=== PATIENT | male | born 1960 | race Two or more races ===

== ENCOUNTER → 2023-07-02 | Outpatient (CLI) | payer MEDICAID ==
[~2023-07-02] MED LIST: ALBUTEROL SULF 2.5 MG/0.5ML(0.5%) NEB SOLN ONE
== END | disposition home or self-care (01) ==
LOC: RT 11:44
PROVIDERS: ATTEND Internal Medicine Pulmonary Disease
DX: R06.02 Shortness of breath (principal); R06.09 Other forms of dyspnea
CPT/HCPCS: 94060; 94727; 94729

== ENCOUNTER 2023-09-02 06:08 | Inpatient (IN) | payer MEDICAID ==
[2023-08-31 10:54] LABS: Basophils # (auto) 0 10 ^3/uL (0-0.2); Basophils % (auto) 0.7 % (0.0-2.0); Eosinophils # (auto) 0.1 10 ^3/uL (0-0.8); Hematocrit 41.1 % (41.0-53.0); Hemoglobin 13.9 g/dL (13.5-17.5); Lymphocytes # (auto) 1.4 10 ^3/uL (0.4-5.4); Lymphocytes % (auto) 29.5 % (10.0-50.0); Mean Corpuscular Hemoglobin 29.2 pg (28.0-32.0); Mean Corpuscular Hgb Conc. 33.8 g/dL (32.0-36.0); Mean Corpuscular Volume 86.4 fL (80.0-100.0); Monocytes # (auto) 0.4 10 ^3/uL (0-1.3); Monocytes % (auto) 7.3 % (0.0-12.0); Neutrophils % (auto) 60.5 % (37.0-80.0); Nucleated Red Blood Cells % 0.1 %; Red Blood Cells 4.76 10^6/uL (4.5-5.90); Red Cell Distribution Width 13.5 % (11.8-14.3); White Blood Cell 4.9 10^3/uL (4.4-10.8)
[2023-08-31 11:34] LABS: Alanine Aminotransferase 23 U/L (7-40); Albumin 4.3 g/dL (3.2-4.8); Alkaline Phosphatase 198 U/L (46-116); Anion Gap 6 (5-15); Aspartate Aminotransferase 10 U/L (13-40); BUN/Creatinine Ratio 13.8 (10.0-20.0); Blood Urea Nitrogen 13 mg/dL (9-23); Calcium 9.1 mg/dL (8.5-10.1); Carbon Dioxide 28 mmol/L (20-30); Chloride 106 mmol/L (98-107); Glucose 103 mg/dL (74-106); Potassium 4.7 mmol/L (3.5-5.1); Sodium 140 mmol/L (136-145)
[2023-08-31 11:35] LABS: Bilirubin, Total 0.2 mg/dL (0.2-1.0); Total Protein 6.7 g/dL (5.7-8.2)
[2023-08-31 11:36] LABS: Urine Bacteria NONE SEEN /hpf (None Seen); Urine Blood Negative /uL (Negative); Urine Clarity Clear (Clear); Urine Color Yellow (Yellow); Urine Protein, UAD Negative (Negative); Urine Specific Gravity 1.022 (1.001-1.035); Urine Urobilinogen Normal (Negative); Urine WBC 1 /hpf (0 - 3)
[2023-08-31 11:54] LABS: INR 1.01 (0.9-1.15); Partial Thromboplastin Time 31.3 SEC (24.5-34.5); Prothrombin Time 10.6 sec (9.3-11.8)
[~2023-09-02] VITALS: Ht 167.6 cm; Wt 99.2 kg
[~2023-09-02 06:08] MED LIST changes: -ALBUTEROL SULF 2.5 MG/0.5ML(0.5%) NEB SOLN ONE; +HYDR-4798 PO; +LORA-1121 PO; +PANT40TA2 PO; +PHEN1CAP60 PO; +TAMS0.4C36 PO; +ceFAZolin 2 GM/D5W100ml 100 ML IV ONE
[2023-09-02] MEDS ORDERED: SUCCINYLCHOLINE CHLORIDE 20 MG/ML 10ML VIAL IV ONE (06:36)
[2023-09-02] MEDS ORDERED: PROPOFOL 10 MG/ML 20 ML IV ONE (06:39)
[2023-09-02] MEDS ORDERED: fentaNYL CITRATE 100 MCG/2 ML VL ONE (06:39)
[2023-09-02] MEDS ORDERED: ROCURONIUM 10MG/ML 10ML VIAL IV ONE (06:44)
[2023-09-02] MEDS ORDERED: MIDAZOLAM HCL 2MG/2ML 2ml VIAL (1mg/ml) ONE (06:48)
[2023-09-02] MEDS ORDERED: DexAMETHasone SOD PHOS 10MG/1ML VIAL INJ ONE (06:48)
[2023-09-02] MEDS ORDERED: GLYCOPYRROLATE 0.2 MG/ML 1ML VIAL ONE (06:48)
[2023-09-02] MEDS ORDERED: ONDANSETRON HCL 4 MG/2 ML VIAL ONE (06:48)
[2023-09-02] MEDS ORDERED: NEOSTIGMINE 1 MG/ML INJ (10mg/10ML VIAL) ONE (06:48)
[2023-09-02] MEDS ORDERED: LIDOCAINE W/ EPINEPHRINE 2% INJ 20ML VIAL ONE (06:48)
[2023-09-02] MEDS ORDERED: BUPIVACAINE 0.5% P/F INJ 10 ML VIAL ONE (06:48)
[2023-09-02] MEDS ORDERED: MEPERIDINE HCL (25 MG/ML) 1ML VIAL ONE (06:48)
[2023-09-02] MEDS ORDERED: METOCLOPRAMIDE HCL 5MG/ml INJ 2ml VIAL IV PRN (07:15)
[2023-09-02] MEDS ORDERED: HYDROmorphone HCL 2 MG/ML VL/or syr IV PRN (07:15)
[2023-09-02] MEDS ORDERED: MORPHINE SULFATE INJ 2 MG/ml SYRG IV PRN (07:15)
[2023-09-02] MEDS ORDERED: KETOROLAC TROMETH 60MG/2ML VIAL ONE (08:13)
[2023-09-02] MEDS ORDERED: ATROPINE SULFATE 0.4 MG/1 ML VIAL ONE (08:21)
[2023-09-02 08:32] VITALS: RESP 14; O2SAT 93
[2023-09-02] MEDS ORDERED: ACETAMINOPHEN/CODEINE#3 (300/30mg) TAB PO PRN (08:45)
[2023-09-02] MEDS ORDERED: D5W/SOD CHL 0.45%/KCL 20MEQ 1,000 ML IV SCH (08:45)
[2023-09-02] MEDS: HYDROmorphone HCL 2 MG/ML VL/or syr IV PRN ×5 (08:48→17:54)
[2023-09-02] MEDS: D5W/SOD CHL 0.45%/KCL 20MEQ 1,000 ML IV SCH ×2 (11:30→21:45)
[2023-09-02] MEDS: PANTOPRAZOLE 40 MG/10 ML VIAL INJ IV SCH (11:35)
[2023-09-02 14:00] VITALS: BP 120/83; PULSE 74; RESP 18; TEMP 97.6; O2SAT 96
[2023-09-02] MEDS: ceFAZolin 1GM/50ML 50 ML IV SCH ×2 (14:23→19:01)
[2023-09-02 14:39] VITALS: PULSE 80; RESP 16; O2SAT 99
[2023-09-02 16:34] VITALS: BP 148/77; PULSE 80; RESP 16; TEMP 98.2; O2SAT 99
[2023-09-02] MEDS: TAMSULOSIN HYDROCHLORIDE 0.4 MG CAP PO SCH (17:51)
[2023-09-02] MEDS: ONDANSETRON HCL 4 MG/2 ML VIAL IV PRN (17:52)
[2023-09-02 20:00] VITALS: BP 127/85; PULSE 102; RESP 19; TEMP 98.6; O2SAT 97
[2023-09-02] MEDS: PHENYTOIN SODIUM 100 MG CAP PO SCH (21:43)
[2023-09-02] MEDS: HYDROcodone-ACET 5/325MG TAB PO PRN (21:43)
[2023-09-02 22:00] VITALS: BP 127/85; PULSE 102; RESP 19; TEMP 98.6; O2SAT 97
[2023-09-03] VITALS (7 sets, daily range): BP systolic 110–130; BP diastolic 66–79; PULSE 63–97; RESP 17–20; TEMP 98–99.2; O2SAT 91–97
[2023-09-03] MEDS: HYDROmorphone HCL 2 MG/ML VL/or syr IV PRN ×3 (00:03→13:34)
[2023-09-03] MEDS: ceFAZolin 1GM/50ML 50 ML IV SCH ×4 (05:21→19:01)
[2023-09-03] MEDS: D5W/SOD CHL 0.45%/KCL 20MEQ 1,000 ML IV SCH (06:30)
[2023-09-03 07:26] LABS: Basophils # (auto) 0 10 ^3/uL (0-0.2); Basophils % (auto) 0.1 % (0.0-2.0); Eosinophils # (auto) 0 10 ^3/uL (0-0.8); Eosinophils % (auto) 0.3 % (0.0-7.0); Hematocrit 37.5 % (41.0-53.0); Hemoglobin 12.7 g/dL (13.5-17.5); Lymphocytes % (auto) 11.3 % (10.0-50.0); Mean Corpuscular Hemoglobin 29.6 pg (28.0-32.0); Monocytes # (auto) 0.8 10 ^3/uL (0-1.3); Monocytes % (auto) 8.2 % (0.0-12.0); Neutrophils # (auto) 7.4 10 ^3/uL (1.6-8.6); Neutrophils % (auto) 80.1 % (37.0-80.0); Red Blood Cells 4.31 10^6/uL (4.5-5.90); Red Cell Distribution Width 13.5 % (11.8-14.3); White Blood Cell 9.2 10^3/uL (4.4-10.8)
[2023-09-03 07:32] LABS: Alanine Aminotransferase 37 U/L (7-40); Albumin 3.9 g/dL (3.2-4.8); Alkaline Phosphatase 176 U/L (46-116); Anion Gap 7 (5-15); Aspartate Aminotransferase 28 U/L (13-40); Blood Urea Nitrogen 9 mg/dL (9-23); Calcium 8.2 mg/dL (8.5-10.1); Carbon Dioxide 25 mmol/L (20-30); Chloride 101 mmol/L (98-107); Glucose 124 mg/dL (74-106); Potassium 4.2 mmol/L (3.5-5.1)
[2023-09-03 07:33] LABS: Bilirubin, Total 0.5 mg/dL (0.2-1.0); Total Protein 6.2 g/dL (5.7-8.2)
[2023-09-03 07:42] LABS: Sodium 133 mmol/L (136-145)
[2023-09-03 09:32] LABS: Hepatitis B Surface Antigen Negative (Negative)
[2023-09-03] MEDS: PANTOPRAZOLE 40 MG/10 ML VIAL INJ IV SCH (09:51)
[2023-09-03] MEDS: PHENYTOIN SODIUM 100 MG CAP PO SCH ×2 (09:52→21:27)
[2023-09-03] MEDS: HYDROcodone-ACET 5/325MG TAB PO PRN ×2 (09:52→18:21)
[2023-09-03] MEDS: ONDANSETRON HCL 4 MG/2 ML VIAL IV PRN (09:52)
[2023-09-03 09:54] LABS: Hepatitis C Antibody Negative (Negative)
[2023-09-03] MEDS: TAMSULOSIN HYDROCHLORIDE 0.4 MG CAP PO SCH (18:21)
[2023-09-04] MEDS: HYDROcodone-ACET 5/325MG TAB PO PRN ×2 (01:21→10:14)
[2023-09-04] MEDS: ceFAZolin 1GM/50ML 50 ML IV SCH ×4 (01:22→18:00)
[2023-09-04 05:00] VITALS: BP 103/60; PULSE 71; RESP 18; TEMP 97.9; O2SAT 95
[2023-09-04 06:33] LABS: Basophils # (auto) 0 10 ^3/uL (0-0.2); Basophils % (auto) 0.4 % (0.0-2.0); Eosinophils # (auto) 0.1 10 ^3/uL (0-0.8); Eosinophils % (auto) 1.8 % (0.0-7.0); Hematocrit 39.9 % (41.0-53.0); Hemoglobin 13.4 g/dL (13.5-17.5); Lymphocytes # (auto) 1.3 10 ^3/uL (0.4-5.4); Lymphocytes % (auto) 18.9 % (10.0-50.0); Mean Corpuscular Hemoglobin 29.7 pg (28.0-32.0); Mean Corpuscular Hgb Conc. 33.6 g/dL (32.0-36.0); Mean Corpuscular Volume 88.5 fL (80.0-100.0); Monocytes # (auto) 0.5 10 ^3/uL (0-1.3); Neutrophils # (auto) 4.7 10 ^3/uL (1.6-8.6); Neutrophils % (auto) 70.9 % (37.0-80.0); Nucleated Red Blood Cells % 0.1 %; Red Blood Cells 4.51 10^6/uL (4.5-5.90); Red Cell Distribution Width 13.6 % (11.8-14.3); White Blood Cell 6.6 10^3/uL (4.4-10.8)
[2023-09-04 06:49] LABS: Alanine Aminotransferase 26 U/L (7-40); Alkaline Phosphatase 166 U/L (46-116); Anion Gap 5 (5-15); Aspartate Aminotransferase 20 U/L (13-40); BUN/Creatinine Ratio 9.6 (10.0-20.0); Bilirubin, Total 0.4 mg/dL (0.2-1.0); Blood Urea Nitrogen 9 mg/dL (9-23); Calcium 8.7 mg/dL (8.5-10.1); Carbon Dioxide 28 mmol/L (20-30); Chloride 106 mmol/L (98-107); Glucose 107 mg/dL (74-106); Potassium 4.4 mmol/L (3.5-5.1); Sodium 139 mmol/L (136-145); Total Protein 6.5 g/dL (5.7-8.2)
[2023-09-04 08:00] VITALS: PULSE 99; RESP 21; O2SAT 95
[2023-09-04 09:00] VITALS: BP 118/76; PULSE 99; RESP 21; TEMP 98.4; O2SAT 95
[2023-09-04] MEDS: PHENYTOIN SODIUM 100 MG CAP PO SCH (10:15)
[2023-09-04] MEDS: PANTOPRAZOLE 40 MG/10 ML VIAL INJ IV SCH (10:15)
[2023-09-04 13:00] VITALS: BP 94/59; PULSE 74; RESP 20; TEMP 98.1; O2SAT 97
[2023-09-04] MEDS ORDERED: CEPH500T PO (15:31)
[2023-09-04] MEDS ORDERED: DOCU-94 PO (15:31)
[2023-09-04] MEDS ORDERED: TRAM50TA2 PO (15:31)
[2023-09-04] MEDS ORDERED: ZOFR4T PO (15:31)
[2023-09-04 17:00] VITALS: BP 111/72; PULSE 70; RESP 18; TEMP 98.4; O2SAT 97
[2023-09-04 17:35] VITALS: BP 111/72; PULSE 70; RESP 18; TEMP 98.4; O2SAT 97
[2023-09-04] MEDS: TAMSULOSIN HYDROCHLORIDE 0.4 MG CAP PO SCH (18:00)
== END 2023-09-04 18:33 | disposition home or self-care (01) | DRG 263 ==
LOC: SUR 06:08 → OVERFLOW 10:28 → WEST WING 12:30
PROVIDERS: ADMIT Internal Medicine; ATTEND Internal Medicine
PROC: 0FT44ZZ Resection of Gallbladder, Percutaneous Endoscopic Approach (ICD-10-PCS; principal; 2023-09-02 07:23)
DX: K80.10 Calculus of gallbladder with chronic cholecystitis without obstruction (principal); E66.9 Obesity, unspecified; G40.909 Epilepsy, unspecified, not intractable, without status epilepticus; N40.0 Benign prostatic hyperplasia without lower urinary tract symptoms; G89.29 Other chronic pain; Z68.35 Body mass index [BMI] 35.0-35.9, adult
CPT/HCPCS: 36415; 80053; 80185; 81001; 85025; 85610; 85730; 86803; 86850; 86900; 86901; 87340; 97163; C9113; G0378; J0330; J0461; J1100; J1885; J2250; J2405; J2704; J3490